=== PATIENT | female | born 1940 | race Caucasian/White ===

== ENCOUNTER 2017-05-06 12:42 | Inpatient (IN) | payer MEDICARE, OTHER ==
[~2017-05-06] VITALS: Ht 149.9 cm; Wt 90.0 kg
[2017-05-06] VITALS (8 sets, daily range): BP systolic 137–172; BP diastolic 61–96; PULSE 66–76; RESP 18–24; TEMP 96.7–97.8; O2SAT 89–98
[~2017-05-06 12:42] MED LIST: ALBU17I INH; AMLO5TAB96 PO; AMOX875T20 PO; FEXO180 PO; LORT5TAB PO; METO25 PO; MONT10TA2 PO
[2017-05-06] MEDS ORDERED: HYDR25TA5 PO (13:02)
[2017-05-06] MEDS ORDERED: CALC1TAB87 PO (13:02)
[2017-05-06] MEDS ORDERED: METO-426 PO (13:02)
[2017-05-06] MEDS ORDERED: IBUP1TAB7 PO (13:02)
[2017-05-06] MEDS ORDERED: METO50TA PO (13:02)
[2017-05-06] MEDS ORDERED: ASPI81CH6 CHEW (13:02)
[2017-05-06] MEDS ORDERED: VITACAP7 PO (13:02)
[2017-05-06] MEDS ORDERED: ATOR20TA15 PO (13:02)
[2017-05-06] MEDS ORDERED: CHOL100025 CHEW (13:02)
[2017-05-06] MEDS ORDERED: VITA100018 PO (13:02)
--- NOTE | 2017-05-06 13:26 | PD ---
HPI Chief Complaint: Musculoskeletal Complaint Time Seen by Provider: 13:08 Travel History International Travel<30 days: No Contact w/Intl Traveler<30days: No Traveled to known affect area: No History of Present Illness HPI right shoulder fracture/dislocation per patient ended up requiring reduction in OR and after she recovered was released home and schedule to see dr warren prescott whom they saw [facility] Past Medical History Asthma: Yes Cancer: Yes (BILATERAL MASTECTOMY) Cardiovascular Problems: No Chemotherapy: Yes COPD: Yes Diabetes: No Genitourinary: No Hepatitis: No Hiatal Hernia: No Hypertension: Yes (TAKES METOPROLOL, NORVASC) Medical other: Yes (ESOPHAGEAL STRICTURE) Musculoskeletal: No Neurologic: No Psychiatric: No Reproductive: No Respiratory: Yes (ASTHMA) Radiation Therapy: Yes Sleep Apnea: No Thyroid Disease: No Tetanus Vaccination: > 5 Years Influenza Vaccination: Yes ?: Not Menopausal: Yes Past Surgical History Abdominal Surgery: Yes (CHOLECYSTECTOMY, LAP LYSIS OF ADHESIONS) Cardiac Surgery: No Ear Surgery: No Endocrine Surgery: No Eye Surgery: No Genitourinary Surgery: No Gynecologic Surgery: Yes (HYSTERECTOMY) Neurologic Surgery: No Oral Surgery: No Pacemaker: No Thoracic Surgery: No Other Surgery: Yes Social History Alcohol Use: No Tobacco Use: No Substance Use: No Allergies-Medications (Allergen,Severity, Reaction): Coded Allergies: adhesive (Unverified Allergy, Severe, Rash, 05/06/17) lisinopril (Unverified Allergy, Severe, RASH/SWELLING, 05/06/17) pantoprazole (Verified Allergy, Severe, 05/06/17) tramadol (Verified Allergy, Unknown, Nausea/Vomiting, 05/06/17) Reported Meds & Prescriptions Reported Meds & Active Scripts Active Reported Vitamin D3 (Cholecalciferol) 1,000 Unit Tab 1,000 Units PO DAILY Vitamin D3 (Cholecalciferol) 1,000 Unit Chew 1,000 Units CHEW DAILY B Complex (B-Complex Vitamins) 1 Cap 1 Cap PO DAILY Calcium 600 with Vitamin D (Calcium Carbonate-Cholecalciferol) 600-400 mg-Unit Tab 1 Tab PO DAILY Aspirin Low Dose (Aspirin) 81 Mg Chew 81 Mg CHEW DAILY Hydrochlorothiazide 25 Mg Tab 25 Mg PO DAILY Atorvastatin (Atorvastatin Calcium) 20 Mg Tab 20 Mg PO HS Metoprolol Tartrate 75 Mg Tab 75 Mg PO DAILY Metoprolol Tartrate 50 Mg Tab 50 Mg PO HS Ibuprofen 800 Mg Tab 800 Mg PO TID Data Data Last Documented VS Vital Signs Date Time Temp Pulse Resp B/P (MAP) Pulse Ox O2 Delivery O2 Flow Rate FiO2 05/06/17 14:01 92 Room Air 05/06/17 12:49 97.7 66 20 168/96 (120) Orders Orders Complete Blood Count With Diff (05/06/17 13:30) Comprehensive Metabolic Panel (05/06/17 13:30) Troponin I (05/06/17 13:30) B-Type Natriuretic Peptide (05/06/17 13:30) Prothrombin Time / Inr (Pt) (05/06/17 13:30) Act Partial Throm Time (Ptt) (05/06/17 13:30) Chest, Single Ap (05/06/17 13:30) Iv Access Insert/Monitor (05/06/17 13:30) Ecg Monitoring (05/06/17 13:30) Oximetry (05/06/17 13:30) Morphine Inj (Morphine Inj) (05/06/17 13:30) Ondansetron Inj (Zofran Inj) (05/06/17 13:30) Shoulder, Limited(2vws) (05/06/17 ) Labs Laboratory Tests Test 05/06/17 13:45 05/06/17 14:10 White Blood Count 11.6 TH/MM3 Red Blood Count 4.28 MIL/MM3 Hemoglobin 11.7 GM/DL Hematocrit 35.3 % Mean Corpuscular Volume 82.4 FL Mean Corpuscular Hemoglobin 27.3 PG Mean Corpuscular Hemoglobin Concent 33.1 % Red Cell Distribution Width 13.6 % Platelet Count 335 TH/MM3 Mean Platelet Volume 8.0 FL Neutrophils (%) (Auto) 74.8 % Lymphocytes (%) (Auto) 10.4 % Monocytes (%) (Auto) 10.8 % Eosinophils (%) (Auto) 1.2 % Basophils (%) (Auto) 2.8 % Neutrophils # (Auto) 8.7 TH/MM3 Lymphocytes # (Auto) 1.2 TH/MM3 Monocytes # (Auto) 1.3 TH/MM3 Eosinophils # (Auto) 0.1 TH/MM3 Basophils # (Auto) 0.3 TH/MM3 CBC Comment DIFF FINAL Differential Comment Prothrombin Time 10.0 SEC Prothromb Time International Ratio 1.0 RATIO Activated Partial Thromboplast Time 22.4 SEC Blood Urea Nitrogen 8 MG/DL Creatinine 0.44 MG/DL Random Glucose 98 MG/DL Total Protein 6.4 GM/DL Albumin 3.0 GM/DL Calcium Level 8.1 MG/DL Alkaline Phosphatase 83 U/L Aspartate Amino Transf (AST/SGOT) 44 U/L Alanine Aminotransferase (ALT/SGPT) 42 U/L Total Bilirubin 1.2 MG/DL Sodium Level 119 MEQ/L Potassium Level 3.6 MEQ/L Chloride Level 84 MEQ/L Carbon Dioxide Level 25.7 MEQ/L Anion Gap 9 MEQ/L Estimat Glomerular Filtration Rate 140 ML/MIN Troponin I LESS THAN 0.02 NG/ML B-Type Natriuretic Peptide 41 PG/ML MDM Medical Decision Making Medical Screen Exam Complete: Yes Emergency Medical Condition: Yes Medical Record Reviewed: Yes Differential Diagnosis copd exac v electrolyte abnl v dehydration v Narrative Course found to have humeral neck and greater tuberosity fracture as well as anterior dislocation....call to dr mcelroy to make aware.....patient has hyponatremia and dehydration for which she will be admitted to medicine team Diagnosis Primary Impression: Hyponatremia Additional Impressions: Dehydration COPD exacerbation right humeral neck fracture with anterior glenohumeral dislocation Lonnie Calzada MD May 06, 2017 13:26
[2017-05-06] MEDS ORDERED: ONDANSETRON HCL 4 MG/2 ML VIAL IV PUSH ONE (13:30)
[2017-05-06] MEDS ORDERED: MORPHINE SULFATE 2 MG/ML INJ IV PUSH ONE (13:30)
[2017-05-06 13:51] LABS: AUTOMATED NEUTROPHIL # 8.7 TH/MM3 (1.8-7.7); BASOPHIL # 0.3 TH/MM3 (0-0.2); BASOPHIL % 2.8 % (0.0-2.0); EOSINOPHIL # 0.1 TH/MM3 (0-0.4); EOSINOPHIL % 1.2 % (0.0-4.0); HEMATOCRIT 35.3 % (35.0-46.0); HEMOGLOBIN 11.7 GM/DL (11.6-15.3); LYMPH % 10.4 % (9.0-44.0); LYMPHOCYTE # 1.2 TH/MM3 (1.0-4.8); MEAN CELL VOLUME 82.4 FL (80.0-100.0); MEAN CORPUSCULAR HEMOGLOBIN 27.3 PG (27.0-34.0); MEAN CORPUSCULAR HGB CONC 33.1 % (32.0-36.0); MONO % 10.8 % (0.0-8.0); MONOCYTE # 1.3 TH/MM3 (0-0.9); NEUT % 74.8 % (16.0-70.0); PLATELET COUNT 335 TH/MM3 (150-450); RED BLOOD COUNT 4.28 MIL/MM3 (4.00-5.30); RED CELL DISTRIBUTION WIDTH 13.6 % (11.6-17.2); WHITE BLOOD COUNT 11.6 TH/MM3 (4.0-11.0)
--- NOTE | 2017-05-06 14:15 | RADRPT ---
EXAM DATE/TIME: 05/06/2017 13:47 CORRECTION Corrected on: May 06, 2017; [facility] COMPARISON: No previous studies available for comparison. INDICATIONS : Fall with right shoulder injury on 05/01/17 , has increasing pain and bruising with swelling to right u pper chest. Short of breath MEDICAL HISTORY : Chronic obstructive pulmonary disease. SURGICAL HISTORY : None. ENCOUNTER: Initial ACUITY: 4 - 6 days PAIN SCORE: 10/10 LOCATION: Right upper chest FINDINGS: A single view of the chest demonstrates the lungs to be symmetrically aerated without evidence of mas s, infiltrate or effusion. The cardiomediastinal contours are unremarkable. There is a right anterio r shoulder dislocation. CONCLUSION: No acute disease. Right anterior shoulder dislocation. Please see right shoulder plain film exam for further details. Mo Puente MD on May 06, 2017 at 14:12 Board Certified Radiologist. This report was verified electronically. Mo Puente MD on May 06, 2017 at 14:15 Board Certified Radiologist. This report was verified electronically.
--- NOTE | 2017-05-06 14:16 | RADRPT ---
EXAM DATE/TIME: 05/06/2017 13:49 [facility] COMPARISON: CHEST SINGLE AP, May 06, 2017, 13:47. INDICATIONS : Fell on right shoulder 05/01/17 Pt was at another ER and told she had dislocated shoulder and possible fx. shoulder was reduced under anesthesia. Patient has increasing pain and swelling and bruising MEDICAL HISTORY : Chronic obstructive pulmonary disease. SURGICAL HISTORY : None. ENCOUNTER: Initial ACUITY: 4 - 6 days PAIN SCORE: 10/10 LOCATION: Right Shoulder FINDINGS: AP and Y. views of the right shoulder were obtained and demonstrate an anterior shoulder dislocation. There is deformity of the lateral humeral head adjacent appearing calcification. There is soft tissu e prominence. The acromioclavicular joint is intact. There is mild osteopenia. CONCLUSION: 1. Anterior shoulder dislocation. 2. Deformity of the lateral humeral head which may be chronic. As adjacent calcification. Mo Puente MD on May 06, 2017 at 14:13 Board Certified Radiologist. This report was verified electronically.
[2017-05-06 15:04] LABS: ALKALINE PHOSPHATASE 83 U/L (45-117); ALT (GPT) 42 U/L (10-53); AST (GOT) 44 U/L (15-37); BICARBONATE 25.7 MEQ/L (21.0-32.0); BLOOD UREA NITROGEN 8 MG/DL (7-18); CALCIUM 8.1 MG/DL (8.5-10.1); CHLORIDE 84 MEQ/L (98-107); CREATININE 0.44 MG/DL (0.50-1.00); GLOMERULAR FILTRATION RATE 140 ML/MIN (>89); GLUCOSE,RANDOM 98 MG/DL (74-106); TOTAL BILIRUBIN ADULT 1.2 MG/DL (0.2-1.0); TOTAL PROTEIN 6.4 GM/DL (6.4-8.2); TROPONIN I LESS THAN 0.02 NG/ML (0.02-0.05)
[2017-05-06 15:13] LABS: SODIUM (NA) 119 MEQ/L (136-145)
--- NOTE | 2017-05-06 15:55 | HHI.HP ---
[facility] Primary Care Physician Unknown Admission Diagnosis HYPONATREMIA, COPD EXACERBATION Diagnoses: Chief Complaint: fall, confused Travel History International Travel<30 Days: No Contact w/Intl Traveler <30 Da: No Traveled to Known Affected Are: No History of Present Illness Pleasant 76-year-old female with past medical history of hypertension, hyperlipidemia, recent fall who came to ED for further evaluation. [place] weak and confused in the morning. associated muscle weakness/generalized weakness and feels more confused. No diarrhea. Not able to eat much in the morning. she denies chest pain or sob. No urinary complaints. Patient is found with low Na she is taking HCTZ for elevated BP. Patient is found with right shoulder dislocation, conservative management for now no need emergent surgery, has an appointment with ortho. Pain controlled. Patient says pain meds at home did not help and she has severe pain . Review of Systems Except as stated in HPI: all other systems reviewed are Neg Past Family Social History Past Medical History copd, hypothyroidism, HTN Past Surgical History mastectomy double, appy, keila Reported Medications Reported Meds & Active Scripts Active Reported Vitamin D3 (Cholecalciferol) 1,000 Unit Tab 1,000 Units PO DAILY Vitamin D3 (Cholecalciferol) 1,000 Unit Chew 1,000 Units CHEW DAILY B Complex (B-Complex Vitamins) 1 Cap 1 Cap PO DAILY Calcium 600 with Vitamin D (Calcium Carbonate-Cholecalciferol) 600-400 mg-Unit Tab 1 Tab PO DAILY Aspirin Low Dose (Aspirin) 81 Mg Chew 81 Mg CHEW DAILY Hydrochlorothiazide 25 Mg Tab 25 Mg PO DAILY Atorvastatin (Atorvastatin Calcium) 20 Mg Tab 20 Mg PO HS Metoprolol Tartrate 75 Mg Tab 75 Mg PO DAILY Metoprolol Tartrate 50 Mg Tab 50 Mg PO HS Ibuprofen 800 Mg Tab 800 Mg PO TID Allergies: Coded Allergies: adhesive (Unverified Allergy, Severe, Rash, 05/06/17) lisinopril (Unverified Allergy, Severe, RASH/SWELLING, 05/06/17) pantoprazole (Verified Allergy, Severe, 05/06/17) tramadol (Verified Allergy, Unknown, Nausea/Vomiting, 05/06/17) Family History Father liver ca Mother cancer unspecified Social History No tobacco, quit 10 years ago , used to smoke 1/2 ppd No EtOH or illicit drug use. Physical Exam Vital Signs Vital Signs Date Time Temp Pulse Resp B/P (MAP) Pulse Ox O2 Delivery O2 Flow Rate FiO2 05/06/17 15:14 66 18 172/82 (112) 89 Room Air 05/06/17 15:14 66 18 172/82 (112) 93 Nasal Cannula 2.00 05/06/17 14:01 92 Room Air 05/06/17 12:49 97.7 66 20 168/96 (120) 91 Physical Exam GENERAL: This is a pleasantly confused elderly female, well-nourished, well- developed patient, anxious. SKIN: No rashes, ecchymoses or lesions. Cool and dry. HEAD: Atraumatic. Normocephalic. No temporal or scalp tenderness. EYES: Pupils equal round and reactive. Extraocular motions intact. No scleral icterus. No injection or drainage. ENT: Nose without bleeding, purulent drainage or septal hematoma. Throat without erythema, tonsillar hypertrophy or exudate. Uvula midline. Airway patent. NECK: Trachea midline. No JVD or lymphadenopathy. Supple, nontender, no meningeal signs. CARDIOVASCULAR: Regular rate and rhythm without murmurs, gallops, or rubs. RESPIRATORY: Clear to auscultation. Breath sounds equal bilaterally. No wheezes , rales, or rhonchi. GASTROINTESTINAL: Abdomen soft, non-tender, nondistended. No hepato-splenomegaly , or palpable masses. No guarding. MUSCULOSKELETAL: Extremities without clubbing. Bruised right shoulder and right upper chest. Right shoulder joint tenderness,edema noted. No calf tenderness. Negative Homans sign bilaterally. NEUROLOGICAL: Awake and alert, anxious, mildly confused. Cranial nerves II through XII intact. Motor and sensory grossly within normal limits. Five out of 5 muscle strength in all muscle groups. Normal speech. Laboratory Laboratory Tests Test 05/06/17 13:45 05/06/17 14:10 White Blood Count 11.6 Red Blood Count 4.28 Hemoglobin 11.7 Hematocrit 35.3 Mean Corpuscular Volume 82.4 Mean Corpuscular Hemoglobin 27.3 Mean Corpuscular Hemoglobin Concent 33.1 Red Cell Distribution Width 13.6 Platelet Count 335 Mean Platelet Volume 8.0 Neutrophils (%) (Auto) 74.8 Lymphocytes (%) (Auto) 10.4 Monocytes (%) (Auto) 10.8 Eosinophils (%) (Auto) 1.2 Basophils (%) (Auto) 2.8 Neutrophils # (Auto) 8.7 Lymphocytes # (Auto) 1.2 Monocytes # (Auto) 1.3 Eosinophils # (Auto) 0.1 Basophils # (Auto) 0.3 CBC Comment DIFF FINAL Differential Comment Prothrombin Time 10.0 Prothromb Time International Ratio 1.0 Activated Partial Thromboplast Time 22.4 Blood Urea Nitrogen 8 Creatinine 0.44 Random Glucose 98 Total Protein 6.4 Albumin 3.0 Calcium Level 8.1 Alkaline Phosphatase 83 Aspartate Amino Transf (AST/SGOT) 44 Alanine Aminotransferase (ALT/SGPT) 42 Total Bilirubin 1.2 Sodium Level 119 Potassium Level 3.6 Chloride Level 84 Carbon Dioxide Level 25.7 Anion Gap 9 Estimat Glomerular Filtration Rate 140 Troponin I LESS THAN 0.02 B-Type Natriuretic Peptide 41 Result Diagram: 05/06/17 1345 05/06/17 1410 Imaging Last Impressions Chest X-Ray 05/06/17 1330 Signed Impressions: Service Date/Time: Saturday, May 06, 2017 13:47 - CONCLUSION: No acute disease. Right anterior shoulder dislocation. Please see right shoulder plain film exam for further details. Mo Puente MD Shoulder X-Ray 05/06/17 0000 Signed Impressions: Service Date/Time: Saturday, May 06, 2017 13:49 - CONCLUSION: 1. Anterior shoulder dislocation. 2. Deformity of the lateral humeral head which may be chronic. As adjacent calcification. Mo Puente MD Caprini VTE Risk Assessment Caprini VTE Risk Assessment: Mod/High Risk (score >= 2) Caprini Risk Assessment Model Point Value = 1 Point Value = 2 Point Value = 3 Point Value = 5 Age 41-60 Minor surgery BMI > 25 kg/m2 Swollen legs Varicose veins or History of unexplained or recurrent spontaneous Oral contraceptives or hormone replacement Sepsis (< 1 month) Serious lung disease, including pneumonia (< 1 month) Abnormal pulmonary function Acute myocardial infarction Congestive heart failure (< 1 month) History of inflammatory bowel disease Medical patient at bed rest Age 61-74 Arthroscopic surgery Major open surgery (> 45 min) Laparoscopic surgery (> 45 min) Malignancy Confined to bed (> 72 hours) Immobilizing plaster cast Central venous access Age >= 75 History of VTE Family history of VTE Factor V Leiden Prothrombin [id number] Lupus anticoagulant Anticardiolipin antibodies Elevated serum homocysteine Heparin-induced thrombocytopenia Other congenital or acquired thrombophilia Stroke (< 1 month) Elective arthroplasty Hip, pelvis, or leg fracture Acute spinal cord injury (< 1 month) Prophylaxis Regimen Total Risk Factor Score Risk Level Prophylaxis Regimen 0-1 Low Early ambulation 2 Moderate Order ONE of the following: *Sequential Compression Device (SCD) *Heparin 5000 units SQ BID 3-4 Higher Order ONE of the following medications: *Heparin 5000 units SQ TID *Enoxaparin/Lovenox 40 mg SQ daily (WT < 150 kg, CrCl > 30 mL/min) *Enoxaparin/Lovenox 30 mg SQ daily (WT < 150 kg, CrCl > 10-29 mL/min) *Enoxaparin/Lovenox 30 mg SQ BID (WT < 150 kg, CrCl > 30 mL/min) AND/OR *Sequential Compression Device (SCD) 5 or more Highest Order ONE of the following medications: *Heparin 5000 units SQ TID (Preferred with Epidurals) *Enoxaparin/Lovenox 40 mg SQ daily (WT < 150 kg, CrCl > 30 mL/min) *Enoxaparin/Lovenox 30 mg SQ daily (WT < 150 kg, CrCl > 10-29 mL/min) *Enoxaparin/Lovenox 30 mg SQ BID (WT < 150 kg, CrCl > 30 mL/min) AND *Sequential Compression Device (SCD) Assessment and Plan Assessment and Plan 76 yo F with Acute metabolic encephalopathy 2/2 hyponatremia Hyponatremia Na of 118 on admission with confusion 2/ decreased PO and HCTZ use. Hold HCTZ, regular diet, start IVF NS , monitor closely Na level for overcorrection Right anterior shoulder dislocation. Imaging reviewed. Pain control , has an appointment with ortho as OP. Pain management with norco per pain scale and morphine 2 mg IV for breakthrough pain HTN hold HCTZ. Continue metoprolol, add amlodipine DC HCTZ at DC HLD restart statin Restart home meds as appropriate. DVT ppx scd/teds/ lovenox Discussed Condition With Patient, nurse, ED physician Dr Calzada, family at bedside Jade Mariano MD May 06, 2017 15:55
[2017-05-06] MEDS ORDERED: LACTULOSE SYRUP 20 GM/30 ML CUP PO PRN (16:00)
[2017-05-06] MEDS ORDERED: ACETAMINOPHEN/HYDROcodone 325 MG/5 MG TAB PO PRN (16:00)
[2017-05-06] MEDS ORDERED: SENNOSIDES 8.6 MG TAB PO PRN (16:00)
[2017-05-06] MEDS ORDERED: MAGNESIUM HYDROXIDE SUSP 30 ML CUP PO PRN (16:00)
[2017-05-06] MEDS ORDERED: BISACODYL 10 MG SUPP RECTAL PRN (16:00)
[2017-05-06] MEDS ORDERED: SODIUM CHLORIDE 0.9% FLUSH 10 ML FLUSH IV FLUSH PRN (16:00)
[2017-05-06] MEDS ORDERED: MORPHINE SULFATE 2 MG/ML INJ IV PUSH PRN (16:00)
[2017-05-06] MEDS ORDERED: NALOXONE HCL 0.4 MG/ML AMP IV PUSH PRN (16:00)
[2017-05-06] MEDS ORDERED: ONDANSETRON HCL 4 MG/2 ML VIAL IVP PRN (16:00)
[2017-05-06] MEDS ORDERED: ACETAMINOPHEN 325 MG TAB PO PRN (16:00)
[2017-05-06] MEDS: ENOXAPARIN SODIUM 40 MG/0.4 ML SYRINGE SQ SCH (16:32)
[2017-05-06] MEDS: SODIUM CHLOR 0.9% 1000 ML INJ 1,000 ML IV SCH (16:32)
[2017-05-06 18:02] LABS: BICARBONATE 26.8 MEQ/L (21.0-32.0); CALCIUM 8.2 MG/DL (8.5-10.1); CREATININE 0.44 MG/DL (0.50-1.00)
[2017-05-06] MEDS: ATORVASTATIN 20 MG TAB PO SCH (20:17)
[2017-05-06] MEDS: SODIUM CHLORIDE 0.9% FLUSH 10 ML FLUSH IV FLUSH SCH (20:17)
[2017-05-06] MEDS: DOCUSATE SODIUM 50 MG/SENNA 8.6 MG TAB PO SCH (20:17)
[2017-05-06] MEDS: METOPROLOL TARTRATE 50 MG TAB PO SCH (20:17)
[2017-05-07] VITALS (7 sets, daily range): BP systolic 124–146; BP diastolic 61–74; PULSE 61–94; RESP 14–20; TEMP 96.9–98.6; O2SAT 90–96
[2017-05-07] MEDS: SODIUM CHLOR 0.9% 1000 ML INJ 1,000 ML IV SCH ×3 (02:19→17:25)
[2017-05-07] MEDS: ACETAMINOPHEN/HYDROcodone 325 MG/10 MG TAB PO PRN ×5 (02:39→21:51)
[2017-05-07] MEDS ORDERED: HYDROCHLOROTHIAZIDE 25 MG TAB PO SCH (09:00)
[2017-05-07] MEDS: SODIUM CHLORIDE 0.9% FLUSH 10 ML FLUSH IV FLUSH SCH ×2 (09:00→21:00)
--- NOTE | 2017-05-07 09:11 | HHI.PR ---
Subjective Remarks Patient seen and evaluated today in follow-up for hyponatremia. Sodium 122 after IV hydration overnight. Still awaiting this morning's labs Patient feels well Objective Vitals Vital Signs Date Time Temp Pulse Resp B/P (MAP) Pulse Ox O2 Delivery O2 Flow Rate FiO2 05/07/17 04:57 05/07/17 01:26 98.0 68 18 129/67 (87) 95 05/06/17 22:06 97.8 70 20 137/64 (88) 94 05/06/17 19:20 94 21 05/06/17 18:03 94 Nasal Cannula 2.00 05/06/17 18:00 96.7 76 24 144/76 (98) 98 05/06/17 17:47 05/06/17 17:27 70 18 150/61 (90) 94 Nasal Cannula 2.00 05/06/17 15:14 66 18 172/82 (112) 89 Room Air 05/06/17 15:14 66 18 172/82 (112) 93 Nasal Cannula 2.00 05/06/17 14:01 92 Room Air 05/06/17 12:49 97.7 66 20 168/96 (120) 91 I/O 05/06/17 05/06/17 05/06/17 05/07/17 05/07/17 05/07/17 07:00 15:00 23:00 07:00 15:00 23:00 Output Total 100 ml 200 ml Balance -100 ml -200 ml Output Urine Total 100 ml 200 ml # Voids 1 1 4 Result Diagram: 05/06/17 1345 05/06/17 1715 Imaging Last Impressions Chest X-Ray 05/06/17 1330 Signed Impressions: Service Date/Time: Saturday, May 06, 2017 13:47 - CONCLUSION: No acute disease. Right anterior shoulder dislocation. Please see right shoulder plain film exam for further details. Mo Puente MD Shoulder X-Ray 05/06/17 0000 Signed Impressions: Service Date/Time: Saturday, May 06, 2017 13:49 - CONCLUSION: 1. Anterior shoulder dislocation. 2. Deformity of the lateral humeral head which may be chronic. As adjacent calcification. Mo Puente MD Objective Remarks GENERAL: This is a well-nourished, well-developed patient, in no apparent distress. CARDIOVASCULAR: Regular rate and rhythm without murmurs, gallops, or rubs. RESPIRATORY: Clear to auscultation. Breath sounds equal bilaterally. No wheezes , rales, or rhonchi. GASTROINTESTINAL: Abdomen soft, non-tender, nondistended. Normal active bowel sounds MUSCULOSKELETAL: Right shoulder dislocation with significant bruising, otherwise Extremities without clubbing, cyanosis, or edema. NEURO: Alert & Oriented x4 to person, place, time, situation. Moves all ext x4 A/P Problem List: (1) Hyponatremia ICD Code: E87.1 - Hypo-osmolality and hyponatremia Status: Acute Plan: Improved after IV fluids, will continue to follow overnight (2) Dehydration ICD Code: E86.0 - Dehydration Status: Acute Plan: Improved after IV fluids (3) Shoulder dislocation ICD Code: S43.006A - Unspecified dislocation of unspecified shoulder joint, initial encounter Plan: Right anterior shoulder dislocation which will require sleeping and patient will need outpatient orthopedic follow-up OT for dc plans Clotilde Ac MD May 07, 2017 09:11
[2017-05-07] MEDS: ASPIRIN 81 MG CHEW TAB CHEW SCH (09:29)
[2017-05-07] MEDS: METOPROLOL TARTRATE 25 MG TAB PO SCH (09:29)
[2017-05-07] MEDS: CHOLECALCIFEROL (VIT D3) 1000 UNIT TAB PO SCH (09:29)
[2017-05-07] MEDS: DOCUSATE SODIUM 50 MG/SENNA 8.6 MG TAB PO SCH ×2 (09:29→21:50)
[2017-05-07 14:06] LABS: AUTOMATED NEUTROPHIL # 10.6 TH/MM3 (1.8-7.7); BASOPHIL # 0.2 TH/MM3 (0-0.2); BASOPHIL % 1.5 % (0.0-2.0); EOSINOPHIL # 0.6 TH/MM3 (0-0.4); EOSINOPHIL % 4.2 % (0.0-4.0); HEMATOCRIT 34.7 % (35.0-46.0); HEMOGLOBIN 11.1 GM/DL (11.6-15.3); LYMPH % 12.7 % (9.0-44.0); LYMPHOCYTE # 1.9 TH/MM3 (1.0-4.8); MEAN CELL VOLUME 83.4 FL (80.0-100.0); MEAN CORPUSCULAR HEMOGLOBIN 26.7 PG (27.0-34.0); MEAN PLATELET VOLUME 8.1 FL (7.0-11.0); MONO % 11.5 % (0.0-8.0); MONOCYTE # 1.7 TH/MM3 (0-0.9); NEUT % 70.1 % (16.0-70.0); PLATELET COUNT 338 TH/MM3 (150-450); RED BLOOD COUNT 4.16 MIL/MM3 (4.00-5.30); RED CELL DISTRIBUTION WIDTH 14.4 % (11.6-17.2)
[2017-05-07 15:18] LABS: BICARBONATE 26.2 MEQ/L (21.0-32.0); CALCIUM 8.4 MG/DL (8.5-10.1); CREATININE 0.48 MG/DL (0.50-1.00)
[2017-05-07] MEDS ORDERED: ESCI10TA PO (16:28)
[2017-05-07] MEDS ORDERED: LEVO100T5 PO (16:29)
[2017-05-07] MEDS ORDERED: OMEP40CA2 PO (16:29)
[2017-05-07] MEDS ORDERED: TRAZ50TA12 PO (16:31)
[2017-05-07] MEDS ORDERED: CLAR10TA7 (16:34)
[2017-05-07] MEDS: ENOXAPARIN SODIUM 40 MG/0.4 ML SYRINGE SQ SCH (17:23)
[2017-05-07] MEDS: ATORVASTATIN 20 MG TAB PO SCH (21:50)
[2017-05-07] MEDS: METOPROLOL TARTRATE 50 MG TAB PO SCH (21:51)
[2017-05-08] MEDS: SODIUM CHLOR 0.9% 1000 ML INJ 1,000 ML IV SCH (03:09)
[2017-05-08] MEDS: ACETAMINOPHEN/HYDROcodone 325 MG/10 MG TAB PO PRN ×2 (04:55→09:51)
[2017-05-08 06:32] LABS: BICARBONATE 27.9 MEQ/L (21.0-32.0); CALCIUM 7.9 MG/DL (8.5-10.1)
[2017-05-08 06:36] LABS: CREATININE 0.49 MG/DL (0.50-1.00)
[2017-05-08 08:00] VITALS: BP 164/76; PULSE 68; RESP 21; TEMP 97; O2SAT 96
[2017-05-08 08:30] VITALS: O2SAT 96
[2017-05-08] MEDS: METOPROLOL TARTRATE 25 MG TAB PO SCH (09:50)
[2017-05-08] MEDS: CHOLECALCIFEROL (VIT D3) 1000 UNIT TAB PO SCH (09:50)
[2017-05-08] MEDS: DOCUSATE SODIUM 50 MG/SENNA 8.6 MG TAB PO SCH (09:50)
[2017-05-08] MEDS: ASPIRIN 81 MG CHEW TAB CHEW SCH (09:50)
[2017-05-08] MEDS: SODIUM CHLORIDE 0.9% FLUSH 10 ML FLUSH IV FLUSH SCH (09:51)
[2017-05-08] MEDS ORDERED: HYDR-3516 PO (10:25)
[2017-05-08] MEDS ORDERED: AMLO5 PO (10:25)
[2017-05-08 10:59] VITALS: RESP 18
--- NOTE | 2017-05-08 11:55 | HHI.DCPOC ---
Discharge Care Plan Diagnosis: (1) Dehydration (2) Hyponatremia (3) Shoulder dislocation Goals to Promote Your Health * To prevent worsening of your condition and complications * To maintain your health at the optimal level Directions to Meet Your Goals Take your medications as prescribed Follow your dietary instruction Follow activity as directed Keep your appointments as scheduled Take your immunizations and boosters as scheduled If your symptoms worsen call your PCP, if no PCP go to Urgent Care Center or Emergency Room Smoking is Dangerous to Your Health. Avoid second hand smoke Call the 24-hour hour crisis hotline for domestic abuse at Clotilde Ac MD May 08, 2017 11:55
--- NOTE | 2017-05-08 11:56 | HHI.FF ---
Face to Face Verification Diagnosis: (1) Shoulder dislocation (2) Hyponatremia Physical Therapy Order: Evaluate and Treat, Improve ambulation Occupational Therapy Order: Evaluate and Treat, Gross motor coordination Home Health Aide Order: To Assist In: Bathing and personal care, hose suspender cutter and meal prep Chief Business Officer Order: To Evaluate: Living conditions/environment I have seen patient Lisa Sommer on 05/08/17. My clinical findings support the need for the requested home health care services because: Ltd mobility - disease progression Deconditioned w/ increased weakness Limited ability to care for self I certify that my clinical findings support that this patient is homebound because: Unsteady gait/balance Clotilde Ac MD May 08, 2017 11:56
== END 2017-05-08 13:55 | disposition home or self-care (01) | DRG 640 ==
LOC: PHED 12:42 → OBSVTOIN 15:56 → PHEDA 15:56 → PH3A 17:34
PROVIDERS: ADMIT Hospitalist; ATTEND Hospitalist
DX: E87.1 Hypo-osmolality and hyponatremia (principal); G93.41 Metabolic encephalopathy; E86.0 Dehydration; J44.9 Chronic obstructive pulmonary disease, unspecified; S43.014A Anterior dislocation of right humerus, initial encounter; E78.5 Hyperlipidemia, unspecified; I10 Essential (primary) hypertension; Z85.3 Personal history of malignant neoplasm of breast; Z87.891 Personal history of nicotine dependence; Z88.5 Allergy status to narcotic agent; Z90.13 Acquired absence of bilateral breasts and nipples; Z92.21 Personal history of antineoplastic chemotherapy; Z92.3 Personal history of irradiation
CPT/HCPCS: 71045; 73030; 80048; 80053; 83880; 84484; 85025; 85610; 85730; 94618; G8987-GO; G8988-GO; J1650; J2270; J2405; J7030